=== PATIENT | male | born 1985 | race Caucasian/White ===

== ENCOUNTER 2023-06-26 09:32 | Emergency (ER) | payer OTHER ==
[~2023-06-26] VITALS: Ht 187.9 cm; Wt 79.4 kg
[2023-06-26] MEDS ORDERED: DEXAMETHASONE 4 MG TAB PO ONE (10:00)
[2023-06-26] MEDS ORDERED: DEXAMETHASONE6 MG PO (10:06)
== END 2023-06-26 10:12 | disposition home or self-care (01) ==
LOC: ED 09:32
DX: U07.1 COVID-19 (principal); Z98.890 Other specified postprocedural states